=== PATIENT | female | born 1995 | race Hispanic/Latino ===

== ENCOUNTER → 2022-02-09 08:55 | Outpatient (CLI) | payer OTHER, MEDICAID, SELFPAY ==
[2022-02-09 09:57] LABS: Appearance Urine UA SL CLOUDY; Bilirubin Urine UA NEGATIVE (NEGATIVE); Color Urine UA YELLOW; Glucose Urine UA NEGATIVE (Negative); Ketones Urine UA NEGATIVE (NEGATIVE); Leukocyte Esterase Urine UA NEGATIVE (NEGATIVE); Nitrite Urine UA NEGATIVE (Negative); Occult Blood Urine UA NEGATIVE (Negative); Protein Urine UA NEGATIVE (Negative); Urobilinogen Urine UA 0.2 E.U./dL (0.2)
[2022-02-09 10:02] LABS: Add Manual Diff / Slide Review NO; Basophils Absolute Auto 0 /uL (0-100); Basophils Percent Auto 0.3 % (0-2); Eosinophils Absolute Auto 0 /uL (0-450); Eosinophils Percent Auto 0.5 % (2-4); Hematocrit 30.2 % (36-46); Hemoglobin 10.8 g/dL (12.0-16.0); Lymphocytes Absolute Auto 1700 /uL (1100-4500); Lymphocytes Percent Auto 23.4 % (25-40); Mean Corpuscular HGB Conc 35.7 % (30-36); Mean Corpuscular Hemoglobin 31.4 PG (26-34); Monocytes Absolute Auto 300 /uL (0-900); Monocytes Percent Auto 4.1 % (3-14); Neutrophils Absolute Auto 5100 /uL (1500-7000); Neutrophils Percent Auto 71.7 % (50-75); Platelet Count 169 X10^3/uL (150-400); Red Blood Cell Count 3.43 X10^6/uL (4.0-5.2); Red Cell Distribution Width 13.3 % (11.6-14.8); White Blood Cell Count 7.1 X10^3/uL (4.5-11.0)
[2022-02-09 10:20] LABS: pH Urine UA 6.5 (4.5-8.0)
[2022-02-09 11:59] LABS: Hepatitis B Surface Antigen NEGATIVE s/c (NEGATIVE); Rubella Antibody IgG 3.8 IU/mL (>15)
[2022-02-09 12:05] LABS: HIV 1 & 2 Ab/Ag 4th Gen Combo NEGATIVE (NEGATIVE); Hep C Virus Ab w/Reflex Quant NEGATIVE s/c (NEGATIVE)
[2022-02-10 07:39] LABS: RPR Screen Non Reactive (Non Reactive); Varicella IgG Antibody 283 index (Immune >165)
[2022-02-11 20:47] LABS: AFP, Serum 51.8 ng/mL (.); Estriol, Free 2.26 ng/mL (.); Inhibin A, Dimeric 109.62 pg/mL (.); Inhibin A, MoM See interpretation. (.); Maternal Ethnicity Other (.); Maternal Weight 149 lbs (.); Number of Fetuses No (.); OSBR Risk 1 IN 10000 (.); Results Report (.); Test Results See interpretation. (.); hCG, MoM See interpretation. (.); hCG, Serum 18933 mIU/mL (.)
== END ==
PROVIDERS: Referring Provider Obstetrics & Gynecology; Visit Provider Obstetrics & Gynecology
DX: Z34.02 Encounter for supervision of normal first pregnancy, second trimester (principal); Z3A.19 19 weeks gestation of pregnancy
CPT/HCPCS: 36415; 80055; 81003; 82105; 82677; 84702; 86336; 86787; 86803; 86850; 86900; 86901; 87086; 87389

== ENCOUNTER → 2022-02-24 09:17 | Outpatient (CLI) | payer OTHER, MEDICAID, SELFPAY ==
--- NOTE | 2022-02-24 09:18 | DI.US.S_ITS ---
PROCEDURE: US OB >= 14 WEEKS FETUS INDICATIONS: ANATOMY SCAN OUTSIDE/PRIOR DATING DATA: Last menstrual period (LMP): Unknown. LMP-based estimated date of delivery (PIPPA): Unknown. First dating scan (date and location): 02/24/2022. Estimated date of delivery (PIPPA) from first dating scan: 02/05/2022. The calculations are made using the ultrasound PIPPA of 02/05/2022. TECHNIQUE: Real-time scanning was performed of the fetus, with image documentation and biometric measurements. Endovaginal scanning: Not performed. COMPARISON: None. FINDINGS: General: A single living intrauterine gestation is present. Presentation: Transverse right. Placenta: Placental position is anterior, low lying. Placenta edge is 1.6 cm from the internal cervical os. Amniotic fluid index: 13.4 cm, normal range is 5-24 cm. Single deepest vertical pocket is 5.1 cm. heart rate: 126 beats per minute. Maternal cervical canal: 6.2 cm long. Normal lower limit is 2.5 cm. biometrics: Biparietal diameter: 4.9 cm, 20 weeks 6 days Head circumference: 18.8 cm, 21 weeks 1 day Abdominal circumference: 16.1 cm, 21 weeks 1 day Femur length: 3.4 cm, 20 weeks 3 days Composite gestational age from present scan: 20 weeks 6 days Estimated weight: 386 g Anatomic survey: Neuro: Ventricles are non-dilated at less than 10 mm. Cisterna magna is normal at 3-11 mm. Cerebellum is normal in size and morphology. Nuchal skin fold: Normal at less than 6 mm between 14-21 weeks gestational age. Face: Nose and lips, facial profile are normal. Spine: No evidence for spina bifida. Heart: 4-chambered heart is present, with normal ventricular outflow tracts. Diaphragm: Diaphragm is intact. Stomach: Left-sided stomach is present. Kidneys: No hydronephrosis. Normal is less than 5 mm in 2nd trimester, less than 7 mm in 3rd trimester. Cord: 3-vessel cord has orthotopic insertion. Bladder: Normal in size. Extremities: All 4 extremities identified. IMPRESSION: 1. Cummings living intrauterine at 20 weeks 6 days based on today's ultrasound. 2. Normal amniotic fluid. Low lying placenta 1.6 cm from the internal cervical os. -Recommend follow-up OB ultrasound. 3. Normal and complete anatomic survey. We strive to produce accurate, complete, and clear reports of imaging services. To assist us in improving patient care, this report was composed using standard report templates and voice recognition software. Therefore, it may contain abnormal punctuation, insertions and/or omissions. Occasional wrong-word or sound-alike substitutions may occur. Though we review the report and make efforts to correct it, we do recommend that the report be read carefully in proper context to recognize any text inaccuracies. Dictated by: Tavares Owen M.D. on 02/24/2022 at 13:52 Approved by: Tavares Owen M.D. on 02/24/2022 at 13:58
== END ==
PROVIDERS: Referring Provider Obstetrics & Gynecology; Visit Provider Obstetrics & Gynecology
DX: Z34.02 Encounter for supervision of normal first pregnancy, second trimester (principal); Z3A.20 20 weeks gestation of pregnancy
CPT/HCPCS: 76811

== ENCOUNTER → 2022-03-09 08:50 | Outpatient (CLI) | payer OTHER, MEDICAID, SELFPAY ==
[2022-03-09 14:00] LABS: Urine N gonorrhoeae NOT DETECTED
[2022-03-09 14:17] LABS: Urine Chlamydia NOT DETECTED
== END ==
PROVIDERS: Visit Provider Obstetrics & Gynecology
DX: Z11.3 Encounter for screening for infections with a predominantly sexual mode of transmission (principal); Z34.02 Encounter for supervision of normal first pregnancy, second trimester; Z3A.23 23 weeks gestation of pregnancy
CPT/HCPCS: 87491; 87591

== ENCOUNTER → 2022-03-25 10:40 | Outpatient (CLI) | payer OTHER, MEDICAID, SELFPAY ==
[2022-03-25 12:35] LABS: Hematocrit 33.2 % (36-46); Hemoglobin 11.4 g/dL (12.0-16.0)
[2022-03-25 13:25] LABS: GTT (PREG) 1 Hour PP 50gm Dose 109 mg/dL (76-139)
== END ==
PROVIDERS: Referring Provider Obstetrics & Gynecology; Visit Provider Obstetrics & Gynecology
DX: Z3A.23 23 weeks gestation of pregnancy (principal)
CPT/HCPCS: 36415; 82950; 85014; 85018

== ENCOUNTER → 2022-06-15 16:39 | Outpatient (CLI) | payer OTHER, MEDICAID, SELFPAY ==
[2022-06-16 11:40] LABS: Strep Grp B PCR NEG for Grp B Strep
== END ==
PROVIDERS: Visit Provider Obstetrics & Gynecology
DX: Z34.83 Encounter for supervision of other normal pregnancy, third trimester (principal); Z3A.37 37 weeks gestation of pregnancy
CPT/HCPCS: 87653

== ENCOUNTER → 2022-06-29 09:39 | Outpatient (CLI) | payer OTHER, MEDICAID, SELFPAY ==
[2022-06-29 10:25] LABS: Add Manual Diff / Slide Review NO; Basophils Absolute Auto 0 /uL (0-100); Basophils Percent Auto 0.6 % (0-2); Eosinophils Absolute Auto 100 /uL (0-450); Eosinophils Percent Auto 0.8 % (2-4); Hematocrit 35.1 % (36-46); Hemoglobin 12.1 g/dL (12.0-16.0); Lymphocytes Absolute Auto 1800 /uL (1100-4500); Lymphocytes Percent Auto 25.2 % (25-40); Mean Corpuscular HGB Conc 34.5 % (30-36); Mean Corpuscular Hemoglobin 30.7 PG (26-34); Mean Corpuscular Volume 89.2 fL (80-100); Monocytes Absolute Auto 500 /uL (0-900); Monocytes Percent Auto 6.9 % (3-14); Neutrophils Absolute Auto 4600 /uL (1500-7000); Neutrophils Percent Auto 66.5 % (50-75); Platelet Count 156 X10^3/uL (150-400); Red Blood Cell Count 3.94 X10^6/uL (4.0-5.2); Red Cell Distribution Width 12.7 % (11.6-14.8); White Blood Cell Count 6.9 X10^3/uL (4.5-11.0)
[2022-06-29 10:37] LABS: Alanine Aminotransferase 17 IU/L (<35); Albumin 3.6 g/dL (3.5-5.0); Albumin Globulin Ratio 1.1 (1.0-2.8); Alkaline Phosphatase 137 U/L (38-126); Aspartate Aminotransferase 21 IU/L (14-36); Bilirubin Total 0.6 mg/dL (0.2-1.3); Bilirubin Unconjugated 0.7 mg/dL (0.0-1.1); Globulin 3.4 g/dL (1.7-4.1); HEMOLYSIS < 15 (0-50); Uric Acid 5.7 mg/dL (2.5-6.2)
[2022-06-29 12:00] LABS: Creatinine Urine Random 146.9 mg/dL; Protein (Total) Urine Random 14 mg/dL (0-12); Protein Creatinine Ratio Urine 0.09 GRAM/24H
== END ==
PROVIDERS: Referring Provider Obstetrics & Gynecology; Visit Provider Obstetrics & Gynecology
DX: Z34.03 Encounter for supervision of normal first pregnancy, third trimester (principal); R03.0 Elevated blood-pressure reading, without diagnosis of hypertension; R80.9 Proteinuria, unspecified; Z3A.39 39 weeks gestation of pregnancy
CPT/HCPCS: 36415; 80076; 82570; 84156; 84550; 85025

== ENCOUNTER 2022-07-06 08:23 | Outpatient (CLI) | payer OTHER, MEDICAID, SELFPAY | END 2022-07-06 10:08 | disposition home or self-care (01) | LOC: LABOR 08:28 → OB 07-12 07:57 | PROVIDERS: Referring Provider Obstetrics & Gynecology; Visit Provider Obstetrics & Gynecology | DX: O48.0 Post-term pregnancy (principal); Z3A.40 40 weeks gestation of pregnancy; Z34.83 Encounter for supervision of other normal pregnancy, third trimester; R80.9 Proteinuria, unspecified | CPT/HCPCS: 59025; 59050; 82570; 84156; 87086; G0378; G0379 ==

== ENCOUNTER → 2022-07-06 08:29 | Outpatient (CLI) | payer OTHER, MEDICAID, SELFPAY ==
[2022-07-06 15:43] LABS: Creatinine Urine Random 202.9 mg/dL; Protein (Total) Urine Random 33 mg/dL (0-12); Protein Creatinine Ratio Urine 0.16 GRAM/24H
== END ==
PROVIDERS: Visit Provider Obstetrics & Gynecology
DX: Z34.83 Encounter for supervision of other normal pregnancy, third trimester (principal); Z3A.40 40 weeks gestation of pregnancy; R80.9 Proteinuria, unspecified
CPT/HCPCS: 82570; 84156; 87086

== ENCOUNTER 2022-07-13 01:49 | Inpatient (IN) | payer OTHER, MEDICAID, SELFPAY ==
[2022-07-13] MEDS: LACTATED RINGERS 1,000 ML 999 ML IV (02:30)
--- NOTE | 2022-07-13 02:43 | PM.OBHP.IH.1 ---
OB HPI Date/Time Date of admission: 07/13/22 Date Patient Seen: 07/13/22 Time Patient Seen: 02:35 History of Present Condition Chief complaint: CONTRACTIONS PIPPA Calculator Estimated Delivery Date Method Current WG Current Estimate 07/06/22 Ultrasound #1 41w 0d Estimated Gestational Age (weeks): 41 Narrative: 27-year-old G1 female presented at 41 weeks through the ED reporting uncomfortable contractions. She reports feeling some watery leakage of fluid for 1 week, noticing brown wide spots on her underwear, watery. No change in any possible leakage today. No noted vaginal bleeding. Patient feeling good movement. has been uncomplicated. Estimated weight at 35 weeks was 60 percentile care: good care Obstetrical complications: none Medical complications OB: none Indications Operative indications ( section): distress Preadmission Labs Last OB Lab Results: Blood Type O Positive 02/09/22 09:06 Antibody Screen Negative 02/09/22 09:06 Hematocrit 35.1 % (36-46) L 06/29/22 10:13 Hemoglobin 12.1 g/dL (12.0-16.0) 06/29/22 10:13 Hepatitis B Surface Antigen Negative s/c (NEGATIVE) 02/09/22 09:06 Hepatitis C Antibody Negative s/c (NEGATIVE) 02/09/22 09:06 Rubella Antibody 3.8 IU/mL (>15) L 02/09/22 09:06 Varicella-Zoster IgG Antibody 283 index (Immune >165) 02/09/22 09:06 Glucose 1 Hour 109 mg/dL (76-139) 03/25/22 10:48 Group B Streptococcus (PCR) Neg for grp b strep 06/15/22 16:39 Evaluation Evaluation Variability: Moderate (11-25) monitor accelerations: Present Monitor Decelerations: Prolonged Contraction Frequency (minutes): 3 Category of Tracing: Reactive Status: Category ll Dilation (cm): 3 Effacement (%): 80 station: -2 Non-invasive Membranes Rupture Test: negative PFSH Medical History Anxiety Generalized headaches IBS (irritable bowel syndrome) Surgical History H/O wisdom tooth extraction Family History Mother Diabetes mellitus Grandmother Cancer Social History marital status: number of children: 0 household members: spouse and family (Living with parents) housing: other (Trailer) pets and animals: Yes (Dogs. aware of Toxoplasmosis) education level: college occupational status: employed current occupational exposures/hazards: No special russ needs: No travel history: recent (In [place] in November) seatbelt use: always water heater temp set < 120 deg: Yes (Will check) working smoke detector in home: Yes fire extinguisher in home: Yes carbon monox detector in home: Yes firearms in home: No do you feel safe at home: Yes Smoking Status: Never smoker second hand exposure: No alcohol intake: former substance use type: does not use and other (Pain medicine for teeth) during the past year weight has: decreased > 10 lbs well-balanced diet: about half the time daily servings fruits/ve-4 caffeine: No (Knows limit of 200mg per day) Type(s) of exercise: occasional exercise Meds Home Medications and Allergies Home Medications Medication Instructions Recorded Confirmed Type prenat.vits,seamus,rsg-xthw-pegwf 1 tab PO DAILY 01/04/22 06/29/22 History Allergies Allergy/AdvReac Type Severity Reaction Status Date / Time No Known Drug Allergies Allergy Unverified 06/29/22 08:09 OB Exam Narrative Exam Narrative: temperature 36.3? C BP 140/91, decreased to 131/72 pulse 77 HENMT Head: normal to inspection Resp Effort & Inspection: normal respiratory effort Cardio Rate: regular rate Assessment and Plan Assessment and Plan Assessment and Plan narrative: 27 yo G1 @ 41 weeks EGA, In labor. heart rate category 2 but nonreassuring with 2 episodes of a prolonged deceleration. Patient remote from vaginal delivery. GBS negative Recommended section. Discussed with patient. She agreed to proceed with . section procedure reviewed. Risks of the procedure reviewed including bleeding, infection, injury to internal organs including urinary system and bowel as well as risk of injury to the fetus with delivery. Verbal and written consent obtained. Or team called stat, initiated through tree trimming supervisor at 3:00 a.m..
[2022-07-13] MEDS: LACTATED RINGERS 1,000 ML 100 ML IV ×4 (02:45→08:43)
[2022-07-13] MEDS: CITRIC ACID/SODIUM CITRATE 15 ML SOLUTION 30 ML PO (03:30)
[2022-07-13] MEDS: CEFAZOLIN 2 GM/100 ML PREMIX 100 ML IV (03:36)
[2022-07-13 03:53] LABS: Add Manual Diff / Slide Review NO; Basophils Absolute Auto 0 /uL (0-100); Basophils Percent Auto 0.2 % (0-2); Eosinophils Absolute Auto 100 /uL (0-450); Eosinophils Percent Auto 0.5 % (2-4); Hematocrit 36.3 % (36-46); Hemoglobin 12.4 g/dL (12.0-16.0); Lymphocytes Absolute Auto 1800 /uL (1100-4500); Lymphocytes Percent Auto 15.6 % (25-40); Mean Corpuscular HGB Conc 34.2 % (30-36); Mean Corpuscular Hemoglobin 30.6 PG (26-34); Mean Corpuscular Volume 89.6 fL (80-100); Monocytes Absolute Auto 700 /uL (0-900); Monocytes Percent Auto 6.1 % (3-14); Neutrophils Absolute Auto 9100 /uL (1500-7000); Neutrophils Percent Auto 77.6 % (50-75); Platelet Count 161 X10^3/uL (150-400); Red Blood Cell Count 4.06 X10^6/uL (4.0-5.2); Red Cell Distribution Width 12.7 % (11.6-14.8); White Blood Cell Count 11.7 X10^3/uL (4.5-11.0)
[2022-07-13 04:13] LABS: COVID19 -Nasal RAPID Negative (Negative)
--- NOTE | 2022-07-13 04:14 | PATH_ITS ---
[facility] Accession Number: [id number] No. of containers..01 Tissue . 01 Material submitted: . placenta - PLACENTA . 01 Diagnosis: Placenta, Delivery: Mature phelan placenta (426 grams) with rare infarct and rare foci of intervillous fibrin deposition. - Negative for villitis, retroplacental hematoma, and neoplasia. Marginally inserted membranes with acute chorioamnioniitis. Trivascular umbilical cord. - Negative for funisitis, true knots and thrombosis. MRV 07/19/2022 1646 Local . 01 Electronically signed: . Alexandra Oconnor MD, Pathologist NPI- [id number] . 01 Gross description: . The specimen is received in formalin labeled with the patient's name, , and no additional designation, and consists of a discoid singletion placenta weighting 426 grams and measuring 14.2 x 14.2 x 2.8 cm with no accessory lobes identified. . The membranes are gaxiola and translucent with a slight green tinge with no areas of gaxiola discoloration or thickening identified. The membranes insert at the margin, have a point of rupture measuring 3.7 cm from the nearest placental disc edge. A small amount of clear gelatinous material is identified between the amnion and chorion occupying 10% of the membrane surface. . The cord inserts eccentrically measuring 3.0 cm from the nearest placental disc edge and measures 21.2 cm in length, averages 1.8 cm in diameter and is generally edematous. The cord has a leftward coil with an index of approximately one twist per 5 cm. Sectining reveals a vascular architecture with a moderate amount of gelatinous material that has a slight green tinge to it. . The surface is blue-green with normal arborizing vasculature and no areas of gaxiola discoloration or lesions identified. . The maternal surface is apparently complete with no adherent clot and small areas of gaxiola discoloration located peripherally occupying less than 10% of the maternal surface. Sectioning reveals two gaxiola, firm, wedge-shaped areas located peripherally correlating to the aforementioned maternal surface discolorations occupying less than 10% of the cut surface. The remaining cut surface is red, spongy and unremarkable. Electronic Game Developer sections are submitted as follows: A1: Electronic Game Developer cord. A2: Membrane rolls. A3-A4: Peripheral maternal and cut surface discolorations. A5-A7: Central full thickness normal sections. ([id number]) /JAQUAN 07/14/2022 0903 Local . 01 Pathologist provided ICD-10: O43.90 . 01 CPT . 139086 Specimen Comment: A courtesy copy of this report has been sent to [facility] Pathology Performed at: 01 [facility] [address] [place] [address], [place], [place] [id number] MD Dandre An MD Phone: [phone]
--- NOTE | 2022-07-13 04:21 | SUR.OPER ---
ancef running on arrival to OR, bah in place on arrival to OR, patient brought to room by OB staff
--- NOTE | 2022-07-13 04:23 | SUR.OPER ---
Supine on Padded OR bed, head on pillow, safety belt at thigh, arms secured on padded arm boards at <90 degrees abduction. Bump under right buttock. Legs uncrossed with pillow under knees, gel pad to heels, blanket to lower legs.
--- NOTE | 2022-07-13 04:28 | SUR.OPER ---
cord blood and placenta sent with OB RN
[2022-07-13] MEDS: TRANEXAMIC ACID 1,000 MG in SODIUM CHLORIDE 0.9% 100 ML 200 MG IV (04:45)
[2022-07-13] MEDS: BUPIVACAINE 0.25% (PF) 30 ML, EPINEPHrine 0.15 MG INJ (05:19)
[2022-07-13 05:46] VITALS: BP 132/78; PULSE 101; RESP 14; TEMP 36.4; O2SAT 95
--- NOTE | 2022-07-13 05:48 | PM.OP.1 ---
Operative Date/Time/Diagnoses Date of procedure: 07/13/22 Time of procedure: 16:00 Pre-op diagnosis: 41 week , labor, non reassuring heart rate tracing, Category 3 FHR pattern Post-op diagnosis: same ( with delivery of a viable male ) Procedure & Clinicians Procedure: Primary lower transverse section Same procedure as scheduled: Yes Indications: 27 yo G1 female presented at 41 weeks in active labor taken for urgent section after presenting in labor with category 3 EFM. Shortly after presentation she had a severe deceleration for 5 minutes with gianni to 60s with recovery to baseline, then resolution of decelerations for 30 minutes and a category 1 EFM. However after 30 minutes she had a recurrent prolonged, 6 minute, deceleration requiring ultimate position change to knee-chest position for resolution. Stat called during this deceleration. FHR did recover to baseline while awaiting OR team, but FHR pattern continued with intermittent severe decelerations. heart rate pattern discussed with the patient and I recommended stat section. Discussed under general anesthesia to expedite delivery. Patient agreed and consented to proceeding with under general anesthesia. Surgeon: Evon Sanz [employer] Specialist: Josh Mayorga Anesthesia Type: General Operative Notes Findings: Thick meconium fluid noted on delivery, it did not appear to be a lot of amniotic fluid. No nuchal cord seen. Baby's head noted to be somewhat tight against pubis symphysis. Baby boy delivered with Apgars of 6 and 8. Umbilical venous cord gas 7.16. An arterial cord gas was not able to be obtained. Normal appearing maternal uterus and ovaries Closure Type: primary Specimen(s): other (cord blood to lab) Estimated Blood Loss (mL): 600 Procedure in detail: IV fluids: 2000 ml crystalloid Urine output: 200 mL Description of procedure: She was transferred from the center to the operating room. Rodriguez catheter had already been placed in the birthing center, and her preop antibiotics were running On transfer. Due to urgency of the case, she underwent general anesthesia. Patient was prepped and draped in routine sterile fashion. Surgeons were scrubbed and ready to make incision. Time-out was taken and the patient procedure was identified. Induction of general anesthesia was then performed. After induction of general anesthesia, immediately a pfannenstiel skin incision was made in the lower abdomen and carried down to the level of the fascia. The fascia was incised in the midline and was bluntly extended transversely. The muscles were bluntly in the midline. The parietal peritoneum was elevated, incised and extended bluntly. The bladder blade was placed. The visceral peritoneum was elevated off the lower uterus, incised and the bladder flap was bluntly created. The bladder blade retractor was placed. A transverse incision was made in the lower uterus and the uterus was entered, revealing thick meconium fluid. The uterine incision was extended transversely with blunt dissection. The head was elevated to the uterine incision and delivered through the incision with fundal pressure. On palpation there was not a lot of room between the head and the uterus, and the head was somewhat tight against the pubis symphysis. After the head was delivered, no nuchal cord was noted. Anterior and posterior shoulders followed by the body were delivered without difficulty with fundal assistance. The infant gave an initial spontaneous cry, but was not vigorous. Cord was clamped and cut and the was handed off to respiratory therapy who was present for delivery. Dr. Mayorga then also attended to the baby fall cord specimens were obtained. A segment of the umbilical cord was clamped, cut and handed off to obtain cord gases. Routine cord blood was then obtained a specimen. The placenta was expressed with uterine massage and cord traction. It had meconium-stained membranes, was intact with a normal three-vessel cord. The uterus was brought through the abdominal incision and was swept clean of adherent clots and membranes with a moist laparotomy sponge. The uterus was then closed in 2 layers with 0 Vicryl, the 1st layer being in running locking continuous fashion and the 2nd layer being in a vertical imbricating type fashion. During closure she was given a dose of methergine 0.2 mg IM due to a little heavier bleeding from the edges of her uterine incision and mildly atonic lower uterine segment. BP was 90s/50s at that time. With closure of the uterine incision, at her right uterine angle, it was noted that there was a tear in a uterine vessel, likely a vein since it was not pulsating. A hemostat was placed on the vessel over the tear to stop bleeding and 1st attention was placed to uterine closure due to edges of the incision bleeding. After closure of the 1st layer of the uterus , attention was placed back to this vessel which was ligated around the area of the tear with 2 sutures of 1 Vicryl. Inspection revealed good hemostasis in this area and along the incision. Posterior to the uterus was suctioned of fluid and blood. The tubes and ovaries were inspected and noted to be normal. The uterus was placed back into the maternal abdomen. The paracolic gutters were inspected and wiped of some minimal blood and fluid. The anterior cul-de-sac was inspected and clots were removed. The pelvis was irrigated copiously due to noting some meconium. The uterine incision was re- inspected. There was some light bleeding in the midline of the uterine incision which was controlled with a rncdsa-ic-hpcrh suture of 0 Vicryl. There was some general oozing this behind the bladder flap, without any distinct vessel. Tranexamic acid was given. Some pressure placed with a moist sponge. On reinspection there was no accumulation of any significant amount of blood just some serosanguineous fluid. The abdomen was closed. The vesicouterine peritoneum was reapproximated with running continuous suture of 2 Vicryl. The parietal peritoneum was reapproximated with running 0 Vicryl. The fascia was closed with running continuous suture of 0 Vicryl. The subcuticular tissue was irrigated and then reapproximated by reapproximating Kirill's fascia with 2-0 Vicryl. The skin was closed with a subcuticular suture of 4 0 Monocryl. Steri-Strips and sterile Aquacel dressing was placed. She tolerated the procedure well and went to the recovery room in stable condition. Complications: none Post-operative Condition: stable Disposition: PACU Plan for aftercare: transferred to the birthing center for routine postoperative/ care
[2022-07-13 05:50] VITALS: BP 150/94; PULSE 84; RESP 15; O2SAT 93
[2022-07-13 05:51] VITALS: BP 146/84; PULSE 93; RESP 25; O2SAT 93
[2022-07-13] MEDS: OXYCODONE/ACETAMINOPHEN 5/325 TABLET 1 TAB PO (06:15)
[2022-07-13] MEDS: KETOROLAC 30 MG/ML VIAL IV ×3 (06:54→18:49)
[2022-07-13 08:24] LABS: Alanine Aminotransferase 22 IU/L (<35); Alkaline Phosphatase 152 U/L (38-126); Aspartate Aminotransferase 27 IU/L (14-36); BUN Creatinine Ratio 17.6 (6-22); Bilirubin Total 0.3 mg/dL (0.2-1.3); Blood Urea Nitrogen 9 mg/dL (7-17); Calcium 8.4 mg/dL (8.4-10.2); Carbon Dioxide 23 mmol/L (22-32); Chloride 106 mmol/L (98-107); Estimated Glomerular Filt Rate > 60 mL/min (>60); Globulin 2.9 g/dL (1.7-4.1); Glucose 96 mg/dL (70-100); HEMOLYSIS < 15 (0-50); Potassium 3.9 mmol/L (3.4-5.1); Sodium 135 mmol/L (137-145); Total Protein 5.9 g/dL (6.3-8.2)
[2022-07-13] MEDS: ACETAMINOPHEN 325 MG TABLET 650 MG PO ×3 (08:43→20:37)
--- NOTE | 2022-07-13 18:03 | P.PNOB_ITS ---
Subjective - OB Subjective Patient comments: no complaints and incisional pain [place] baby status: doing well feeding status: exclusively breast feeding Narrative: Doing reasonably well post-. Lochia is minimal. Patient has not yet ambulated to . Date Patient Seen: 07/13/22 Time Patient Seen: 18:03 Exam Vital Signs (past 8 hours): Oxygen Delivery Method Room Air Const General: cooperative and comfortable Nutritional Appearance: average body habitus Orientation: alert and oriented x3 HENMT Head: normal to inspection, atraumatic and abrasion Ears: hearing grossly normal bilaterally Face and sinus: face symmetric Eyes General: appearance normal, both eyes and all related structures Conjunctivae: conjunctivae normal Sclera: sclerae normal EOM: EOM intact bilaterally Neck Neck: normal visual inspection Resp Effort & Inspection: normal respiratory effort and able to speak in complete sentences GI Inspection: normal to inspection and incision (Surgical dressing clean and dry) Palpation: soft, no hepatosplenomegaly and tender (Mild, diffuse postsurgical tenderness) External Female Exam: other (No significant bleeding noted) Extrem General: no calf tenderness Psych Appearance: grossly normal Mental Status: mental status grossly normal Speech and Movement: speech and movement normal Mood: congruent mood Affect: normal affect Attitude: cooperative Thought Process: normal Thought Content: normal Judgment: judgment good Objective Labs Result Diagrams: 07/13/22 02:30 07/13/22 07:56 Labs: Laboratory Results - last 24 hr 07/13/22 07/13/22 07/13/22 02:30 02:30 02:30 WBC 11.7 H RBC 4.06 Hgb 12.4 Hct 36.3 MCV 89.6 MCH 30.6 MCHC 34.2 RDW 12.7 Plt Count 161 Neut % (Auto) 77.6 H Lymph % (Auto) 15.6 L [place] % (Auto) 6.1 Eos % (Auto) 0.5 L Baso % (Auto) 0.2 Neut # (Auto) 9100 H Lymph # (Auto) 1800 [place] # (Auto) 700 Eos # (Auto) 100 Baso # (Auto) 0 Sodium Potassium Chloride Carbon Dioxide BUN Creatinine Estimated GFR BUN/Creatinine Ratio Glucose Calcium Total Bilirubin AST ALT Alkaline Phosphatase Total Protein Albumin Globulin Albumin/Globulin Ratio SARS-CoV-2 (PCR) Negative Blood Type O Positive Antibody Screen Negative 07/13/22 07:56 WBC RBC Hgb Hct MCV MCH MCHC RDW Plt Count Neut % (Auto) Lymph % (Auto) [place] % (Auto) Eos % (Auto) Baso % (Auto) Neut # (Auto) Lymph # (Auto) [place] # (Auto) Eos # (Auto) Baso # (Auto) Sodium 135 L Potassium 3.9 Chloride 106 Carbon Dioxide 23 BUN 9 Creatinine 0.51 L Estimated GFR > 60 BUN/Creatinine Ratio 17.6 Glucose 96 Calcium 8.4 Total Bilirubin 0.3 AST 27 ALT 22 Alkaline Phosphatase 152 H Total Protein 5.9 L Albumin 3.0 L Globulin 2.9 Albumin/Globulin Ratio 1.0 SARS-CoV-2 (PCR) Blood Type Antibody Screen Assessment & Plan Plan day: 0 plan OB: routine postop care Time Spent With Patient Time: Total time spent is greater than 50% in coordination of care (as documented) at patient's floor/unit and/or counseling patient: Time with patient: less than 15 minutes
[2022-07-13] MEDS: OXYCODONE IR 5 MG TABLET PO (20:06)
[2022-07-14] MEDS: OXYCODONE IR 5 MG TABLET PO ×2 (00:12→07:01)
[2022-07-14] MEDS: KETOROLAC 30 MG/ML VIAL IV (00:59)
[2022-07-14] MEDS: ACETAMINOPHEN 325 MG TABLET 650 MG PO ×2 (02:39→09:08)
[2022-07-14] MEDS: DOCUSATE 100 MG CAPSULE 200 MG PO (09:08)
[2022-07-14 09:46] LABS: Add Manual Diff / Slide Review NO; Basophils Absolute Auto 0 /uL (0-100); Basophils Percent Auto 0.2 % (0-2); Eosinophils Absolute Auto 0 /uL (0-450); Eosinophils Percent Auto 0.2 % (2-4); Hematocrit 23.2 % (36-46); Hemoglobin 8.2 g/dL (12.0-16.0); Lymphocytes Absolute Auto 2300 /uL (1100-4500); Lymphocytes Percent Auto 22.7 % (25-40); Mean Corpuscular HGB Conc 35.4 % (30-36); Mean Corpuscular Hemoglobin 31.6 PG (26-34); Mean Corpuscular Volume 89.4 fL (80-100); Monocytes Absolute Auto 500 /uL (0-900); Monocytes Percent Auto 4.5 % (3-14); Neutrophils Absolute Auto 7300 /uL (1500-7000); Neutrophils Percent Auto 72.4 % (50-75); Platelet Count 128 X10^3/uL (150-400); Red Cell Distribution Width 12.9 % (11.6-14.8); White Blood Cell Count 10.1 X10^3/uL (4.5-11.0)
--- NOTE | 2022-07-14 13:24 | P.DS_ITS ---
Discharge Providers Provider Date of admission: 07/13/22 01:49 Discharge Date: 07/14/22 Consults: 07/13/22 06:12 Consult to Lawn Mower Operator Routine Comment: Discharge provider: Peter Lamb MD Summary Hospital Course Date Patient Seen: 07/14/22 Time Patient Seen: 13:24 Diagnoses: Intrauterine gestation, Cummings, 41+ 0 weeks gestational age, delivered by section intolerance of labor Hospital Course: Tracey presented to the [facility] early on the morning of 07/13/2022 with regular uterine contractions. When placed upon monitoring however the patient demonstrated repetitive episodes of bradycardia necessitating emergent delivery. The patient underwent an uneventful primary section by low transverse cervical incision and the details of the procedure well summarized on the operative note of Dr. Evon Sanz. Following surgery the patient has done extremely well with prompt return of bowel and bladder function, she is ambulating independently, tolerating regular diet, and her pain is well controlled with oral pain medications. She will be discharged at this time to home in an afebrile normotensive condition after counseling regarding precautionary symptoms, limitations of activity, medications, plans for follow-up which will be in 1 week. Medications at discharge include oxycodone 5 mg every 4 hours as needed pain dispense 20 with no refills, Colace 100 mg p.o. q.d. times 30 days, ibuprofen 600 mg p.o. q.6 hours as needed pain. In addition she will resume daily vitamins. Peripartum Data Infant Delivery Method: Section Laceration Description: None Episiotomy description: None complications: none [place] 1: Gender: Male Disposition of : home Status at Discharge Cognitive/behavioral status at discharge: oriented Functional status at discharge: independent ambulation Overall status at discharge: patient is progressing back to baseline Time Spent with Patient Time attestation: Total time spent providing and/or coordinating discharge services: Time spent: Less than 30 minutes Objective Labs Result Diagrams: 07/14/22 09:23 07/13/22 07:56 Labs: Laboratory Results - last 24 hr 07/14/22 09:23 WBC 10.1 RBC 2.60 L Hgb 8.2 L Hct 23.2 L MCV 89.4 MCH 31.6 MCHC 35.4 RDW 12.9 Plt Count 128 L Neut % (Auto) 72.4 Lymph % (Auto) 22.7 L [place] % (Auto) 4.5 Eos % (Auto) 0.2 L Baso % (Auto) 0.2 Neut # (Auto) 7300 H Lymph # (Auto) 2300 [place] # (Auto) 500 Eos # (Auto) 0 Baso # (Auto) 0 Exam Vital Signs (past 8 hours): Oxygen Delivery Method Room Air Const General: cooperative and comfortable Nutritional Appearance: average body habitus Orientation: alert and oriented x3 HENMT Head: normal to inspection, atraumatic and abrasion Ears: hearing grossly normal bilaterally Face and sinus: face symmetric Eyes General: appearance normal, both eyes and all related structures Conjunctivae: conjunctivae normal Sclera: sclerae normal EOM: EOM intact bilaterally Neck Neck: normal visual inspection Resp Effort & Inspection: normal respiratory effort and able to speak in complete sentences Auscultation: clear to auscultation bilaterally Cardio Rate: regular rate Rhythm: regular rhythm Heart Sounds: S1 normal, S2 normal and no murmurs GI Inspection: normal to inspection and incision (Surgical dressing clean and dry) Palpation: soft, no hepatosplenomegaly, mass (Firm, mildly tender fundus, U -4) and tender (Mild, diffuse postsurgical tenderness) External Female Exam: other (No significant bleeding noted) Extrem General: no calf tenderness Psych Appearance: grossly normal Mental Status: mental status grossly normal Speech and Movement: speech and movement normal Mood: congruent mood Affect: normal affect Attitude: cooperative Thought Process: normal Thought Content: normal Judgment: judgment good Discharge Plan Discharge Plan Patient Disposition: Home Provider Discharge Comment: Please review the written instructions you received when you were discharged from the hospital. Your follow-up appointment will be scheduled for 1 week after your delivery and I look forward to seeing you then. If in the meanwhile however you have any problems, concerns, or questions, please contact the office either by the office phone at [phone], or via the patient portal. Discharge orders & Medications Prescriptions: New docusate sodium 100 mg Capsule 200 mg PO DAILY 30 Days Qty: 30 0RF oxycodone 5 mg Tablet 5 mg PO Q4H PRN (Reason: Pain, Moderate (4-6)) Qty: 20 0RF ibuprofen 600 mg tablet 600 mg PO Q6H PRN (Reason: fever or pain) Qty: 60 2RF Continued prenat.vits,seamus,[id number] Tablet 1 tab PO DAILY Follow up/Referrals: Peter Lamb MD [Physician] - (Incision check: Dr. Lamb: @11:30am w/ a 11:15am check in time) Discharge Health Status Multidrug resistant organism: No MDRO Diet/Activity/Treatments Diet: Diet as Tolerated Activity: As tolerated Other treatments: [id number] Tylenol may also be used for additional pain relief. Skin/Wound/Dressing Care Report to your healthcare provider any signs of infection, such as:: chills, fever, increased pain, unusual drainage and unusual redness Dressing: Your dressing will be removed at your 1 week postop appointment. Visit Report/Discharge Packet Instructions: DI for , DI for and Nipple Soreness, DI for Prescription Opioid Use Stand Alone Forms: Discharge: Care
== END 2022-07-14 13:50 | disposition home or self-care (01) | DRG 788 ==
PROVIDERS: Admitting Provider Obstetrics & Gynecology; Referring Provider Obstetrics & Gynecology; Visit Provider Obstetrics & Gynecology
PROC: 10D00Z1 Extraction of Products of Conception, Low, Open Approach (ICD-10-PCS; CPT 59514; principal; 2022-07-13 04:15)
DX: O48.0 Post-term pregnancy (principal); O76 Abnormality in fetal heart rate and rhythm complicating labor and delivery; Z3A.41 41 weeks gestation of pregnancy; Z37.0 Single live birth; Z20.822 Contact with and (suspected) exposure to COVID-19
CPT/HCPCS: 36415; 59050; 59510; 59514; 80053; 85025; 86850; 86900; 86901; 87635; C9803; G0379; J0171; J0330; J0690; J1170; J1885; J2250; J2274; J2405; J2704; J3010